=== PATIENT | female | born 1960 | race Caucasian/White ===

== ENCOUNTER → 2016-10-18 | Outpatient (CLI) | payer OTHER ==
[~2016-10-18] MED LIST: ASPI-232 PO; CLB/200 PO; CLC100X PO; LISI-787 PO; MULT-884 PO; TRAZ50TA35 PO; ZCRT/40 PO
--- NOTE | 2016-10-18 15:48 | MAMMOGRAPHY REPORT ---
BILATERAL DIGITAL SCREENING MAMMOGRAM WITH CAD: 10/18/2016 CLINICAL HISTORY: Routine screening examination. TECHNIQUE: Bilateral CC and MLO views were obtained. Additional MLO views were performed with more anterior compression and bilateral XCCL views were also obtained. Current study was also evaluated with a Computer Aided Detection (CAD) system. COMPARISON: Comparison is made to exams dated: 10/16/2015 mammogram, 10/14/2014 mammogram, 09/25/2013 mammogram, 09/13/2012 mammogram, 09/13/2011 mammogram, and 07/11/2009 mammogram - [facility] enter. BREAST COMPOSITION: The tissue of both breasts is almost entirely fatty. FINDINGS: There are scattered benign-appearing round, rim and punctate microcalcifications througho ut the breasts. No new suspicious mass, architectural distortion or cluster of microcalcifications is seen. IMPRESSION: ACR BI-RADS CATEGORY 1: NEGATIVE There is no mammographic evidence of malignancy. A 1 year screening mammogram is recommended. The p atient will receive written notification of the results. Approximately 10% of breast cancers are not detected with mammography. A negative mammographic repor t should not delay biopsy if a clinically suggestive mass is present. Amanda Al M.D. ay/:10/18/2016 14:38:17 Laboratory Tech: Alyx MONTELONGO(Latoya)(Xuan), [facility] letter sent: Normal 1/2 BI-RADS Code: ACR BI-RADS Category 1: Negative
== END | disposition home or self-care (01) ==
LOC: C.MAMM 09:00
PROVIDERS: ATTEND Internal Medicine
DX: Z12.31 Encounter for screening mammogram for malignant neoplasm of breast (principal)

== ENCOUNTER → 2016-11-26 | Outpatient (CLI) | payer OTHER ==
[2016-11-26 13:55] LABS: ESTIMATED AVERAGE GLUCOSE 120 mg/dl; HA1C FLAG Normal (Normal)
[2016-11-26 14:20] LABS: BLOOD UREA NITROGEN 15 mg/dl (7-18); BUN/CREATININE RATIO 17.5 (10-20); CALCIUM 9.1 mg/dl (8.5-10.1); CARBON DIOXIDE 26 mmol/L (21-32); CHLORIDE 105 mmol/L (98-107); CHOLESTEROL 197 mg/dl (0-200); CREATININE 0.84 mg/dl (0.60-1.20); GLUCOSE 94 mg/dl (70-99); POTASSIUM 4.2 mmol/L (3.5-5.1); SODIUM 140 mmol/L (136-145); TRIGLYCERIDES 221 mg/dl (0-150); VERY LOW DENSITY LIPOPROT CALC 44 mg/dl
[2016-11-26 14:28] LABS: ALB/GLOB RATIO 1.1 (0.9-2); ALKALINE PHOSPHATASE 76 U/L (45-117); ALT/SGPT 31 U/L (12-78); AST/SGOT 21 U/L (15-37); CHOLESTEROL/HDL RATIO 4.3; HDL CHOLESTEROL 46 mg/dl; LDL CHOLESTEROL CALCULATED 107 mg/dl
== END | disposition home or self-care (01) ==
LOC: C.LABBC 09:43
PROVIDERS: ATTEND Family Medicine
DX: E55.9 Vitamin D deficiency, unspecified (principal); E78.5 Hyperlipidemia, unspecified; R73.03 Prediabetes

== ENCOUNTER → 2016-12-08 | Outpatient (CLI) | payer OTHER ==
--- NOTE | 2016-12-08 15:34 | DIAGNOSTIC IMAGING REPORT ---
RIGHT KNEE 3 VIEWS CLINICAL HISTORY: Right knee pain right Right pain COMPARISON: None. DISCUSSION: Considerable degenerative change all major joint compartments. Moderate peripheral osteophytic reaction. No evidence for acute bony pathology. No significant joint effusion. There is no evidence for soft tissue swelling. IMPRESSION: Significant degenerative change all major joint compartments. No acute bony abnormality. Electronically signed by: Andreas Esparza M.D. 12/08/2016 3:33 PM Dictated Date/Time: 12/08/2016 3:32 PM
== END | disposition home or self-care (01) ==
LOC: C.RADBC 14:34
PROVIDERS: ATTEND Physician Assistant
DX: M25.561 Pain in right knee (principal)

== ENCOUNTER → 2017-07-06 | Outpatient (CLI) | payer OTHER ==
[2017-07-06 13:36] LABS: BASO % 0.3 %; BASO ABS # 0.01 K/uL (0-0.2); EOS % 3.2 %; EOS ABS # 0.12 K/uL (0-0.5); HEMATOCRIT 33.7 % (37-47); HEMOGLOBIN 11.1 g/dL (12.0-16.0); IG# 0.01 K/uL (0.00-0.02); LYMPH % 32.5 %; LYMPH ABS # 1.22 K/uL (1.2-3.4); MEAN CELL VOLUME 88.9 fL (80-100); MEAN CORPUSCULAR HEMOGLOBIN 29.3 pg (25-34); MEAN CORPUSCULAR HGB CONC 32.9 g/dl (32-36); MEAN PLATELET VOLUME 9.1 fL (7.4-10.4); MONO % 7.5 %; MONO ABS # 0.28 K/uL (0.11-0.59); NEUT % 56.2 %; NEUT ABS # 2.11 K/uL (1.4-6.5); PLATELET COUNT 296 K/uL (130-400); RED CELL DISTRIBUTION WIDTH CV 14.4 % (11.5-14.5); RED CELL DISTRIBUTION WIDTH SD 47.3 fL (36.4-46.3); WHITE BLOOD COUNT 3.75 K/uL (4.8-10.8)
[2017-07-06 14:03] LABS: ALBUMIN 3.5 gm/dl (3.4-5.0); ALT/SGPT 31 U/L (12-78); BLOOD UREA NITROGEN 14 mg/dl (7-18); CALCIUM 8.6 mg/dl (8.5-10.1); CARBON DIOXIDE 28 mmol/L (21-32); CHOLESTEROL 140 mg/dl (0-200); GLUCOSE 93 mg/dl (70-99); POTASSIUM 4.1 mmol/L (3.5-5.1); SODIUM 136 mmol/L (136-145)
[2017-07-06 14:15] LABS: ALKALINE PHOSPHATASE 84 U/L (45-117); AST/SGOT 19 U/L (15-37); LDL CHOLESTEROL CALCULATED 69 mg/dl; TOTAL PROTEIN 7.2 gm/dl (6.4-8.2)
[2017-07-06 14:26] LABS: HEMOGLOBIN A1C 5.4 % (4.5-5.6)
== END | disposition home or self-care (01) ==
LOC: C.LABBC 09:17
PROVIDERS: ATTEND Internal Medicine
DX: E78.5 Hyperlipidemia, unspecified (principal); I10 Essential (primary) hypertension; G47.33 Obstructive sleep apnea (adult) (pediatric); K76.0 Fatty (change of) liver, not elsewhere classified; R73.03 Prediabetes; Z68.42 Body mass index [BMI] 45.0-49.9, adult; R10.11 Right upper quadrant pain; E55.9 Vitamin D deficiency, unspecified

== ENCOUNTER → 2017-07-25 | Outpatient (CLI) | payer OTHER ==
--- NOTE | 2017-07-25 15:05 | DIAGNOSTIC IMAGING REPORT ---
RIGHT LOWER QUADRANT ABDOMINAL WALL ULTRASOUND CLINICAL HISTORY: R10.11 Right upper quadrant abdominal painR10.813 COMPARISON STUDY: No previous studies for comparison. FINDINGS: Ultrasonographic evaluation of the right lower quadrant anterior abdominal wall, reveal no abnormalities. There are no findings to indicate a hernia. IMPRESSION: No ultrasonographic evidence of a right lower quadrant abdominal wall hernia Electronically signed by: Fernando Cornell M.D. 07/25/2017 3:03 PM Dictated Date/Time: 07/25/2017 8:38 AM
== END | disposition home or self-care (01) ==
LOC: C.ULTR 07:54
PROVIDERS: ATTEND Surgery
DX: R10.11 Right upper quadrant pain (principal); R10.31 Right lower quadrant pain; R10.813 Right lower quadrant abdominal tenderness

== ENCOUNTER → 2017-08-11 | Outpatient (CLI) | payer OTHER ==
--- NOTE | 2017-08-11 14:16 | DIAGNOSTIC IMAGING REPORT ---
RIGHT HAND 3 VIEWS CLINICAL HISTORY: Hand pain. FINDINGS: 3 views of the right hand are obtained. No prior studies are available for comparison at the time of dictation. The skeletal structures are well mineralized for age. No fracture is seen. There is mild degenerative narrowing at the radiocarpal articulation. Minimal osteoarthritic change is seen at the first carpometacarpal and metacarpophalangeal joints. Osteoarthritis is seen involving the interphalangeal joints, distal greater than proximal. Erosive osteoarthritis is seen at the fifth distal interphalangeal joint. Mild soft tissue swelling is suggested in the fingers. No radiodense foreign body is identified. IMPRESSION: 1. No acute bony abnormality is identified in the right hand. 2. Arthritic change as above, noting erosive osteoarthritis of the fifth distal interphalangeal joint. Electronically signed by: Solo Mascorro M.D. 08/11/2017 2:14 PM Dictated Date/Time: 08/11/2017 2:13 PM
--- NOTE | 2017-08-11 14:16 | DIAGNOSTIC IMAGING REPORT ---
L HAND MIN 3 VIEWS ROUTINE CLINICAL HISTORY: Left hand pain COMPARISON: None. DISCUSSION: No acute fractures are visualized. There are moderate arthritic changes present the level of the distal interphalangeal joints. Degenerative changes are also present the level the first carpal metacarpal joint. There is a suspected navicular cyst. There is ulnar minus variance IMPRESSION: 1. Osteoarthritic changes most pronounced at the level of the distal interphalangeal joints and first carpal metacarpal joint 2. Suspected navicular cyst Electronically signed by: Fernando Cornell M.D. 08/11/2017 2:15 PM Dictated Date/Time: 08/11/2017 2:13 PM
[2017-08-11 16:43] LABS: BASO % 0.5 %; BASO ABS # 0.03 K/uL (0-0.2); HEMATOCRIT 32.5 % (37-47); HEMOGLOBIN 10.3 g/dL (12.0-16.0); IG# 0.03 K/uL (0.00-0.02); MEAN CELL VOLUME 86.9 fL (80-100); MEAN CORPUSCULAR HEMOGLOBIN 27.5 pg (25-34); MEAN CORPUSCULAR HGB CONC 31.7 g/dl (32-36); MEAN PLATELET VOLUME 8.9 fL (7.4-10.4); MONO % 3.3 %; MONO ABS # 0.21 K/uL (0.11-0.59); NEUT % 62.7 %; NEUT ABS # 3.99 K/uL (1.4-6.5); PLATELET COUNT 512 K/uL (130-400); RED CELL DISTRIBUTION WIDTH CV 14.7 % (11.5-14.5); RED CELL DISTRIBUTION WIDTH SD 46.8 fL (36.4-46.3); WHITE BLOOD COUNT 6.36 K/uL (4.8-10.8)
[2017-08-15 11:53] LABS: ANA SCREEN TC 249X POSITIVE (NEGATIVE)
[2017-08-15 14:38] LABS: ANA TITER 1:40 TITER (<1:40)
== END | disposition home or self-care (01) ==
LOC: C.RADBC 13:48
PROVIDERS: ATTEND Physician Assistant Medical
DX: D64.9 Anemia, unspecified (principal); M25.531 Pain in right wrist; M25.532 Pain in left wrist; M15.4 Erosive (osteo)arthritis

== ENCOUNTER → 2017-08-29 | Outpatient (CLI) | payer OTHER ==
--- NOTE | 2017-08-29 12:04 | DIAGNOSTIC IMAGING REPORT ---
SI JOINTS 3 OR MORE VIEWS CLINICAL HISTORY: Sacroiliitis. Polyarthritis. COMPARISON STUDY: CT of the abdomen and pelvis October 03, 2014. FINDINGS: The sacroiliac joints are intact without evidence for ankylosis. There is no fracture or suspicious lesion. There is osteophytosis of both sacroiliac joints with associated sclerosis. IMPRESSION: Osteophytosis of the bilateral sacroiliac joints with associated sclerosis. The findings likely reflect moderate osteoarthritis although sacroiliitis could appear similar. Electronically signed by: Garry Bernal M.D. 08/29/2017 12:02 PM Dictated Date/Time: 08/29/2017 12:01 PM
[2017-09-01 21:31] LABS: ANA SCREEN TC 249X POSITIVE (NEGATIVE); ANTI-SS-A <1.0 NEG AI (<1.0 NEG); ANTI-SS-B <1.0 NEG AI (<1.0 NEG); COMPLEMENT C3 TC 44859W 153 MG/DL (90-180); COMPLEMENT C4 TC 44982E 32 MG/DL (16-47); PARVOVIRUS IgM INDEX 0.2 (<0.9)
== END | disposition home or self-care (01) ==
LOC: C.RAD1850 11:24
PROVIDERS: ATTEND Internal Medicine Rheumatology
DX: D47.3 Essential (hemorrhagic) thrombocythemia (principal); J01.90 Acute sinusitis, unspecified; M06.4 Inflammatory polyarthropathy; M46.1 Sacroiliitis, not elsewhere classified; R70.0 Elevated erythrocyte sedimentation rate

== ENCOUNTER → 2017-09-01 | Outpatient (CLI) | payer OTHER ==
--- NOTE | 2017-09-01 17:34 | DIAGNOSTIC IMAGING REPORT ---
BONE SCAN WHOLE BODY CLINICAL HISTORY: 56 years-old Female presenting with J01.90 Acute sinusitis, diagnosed with sacroiliitis. TECHNIQUE: Planar anterior and posterior imaging of the whole body and the hands was performed 3 hours following the intravenous administration of 26.3 mCi Tc-99m MDP. COMPARISON: Plain radiographs of the hands from 08/11/2017. FINDINGS: Focal radiotracer uptake at the first carpometacarpal articulation of the left hand and distal interphalangeal joint of the second finger. No focal radiotracer uptake in the right hand. Images of the whole body demonstrate focal radiotracer uptake in the lateral femoral condyle of the right femur and medial tibial plateau of the right tibia. Focal radiotracer uptake in the lateral midfoot-forefoot junction of the right foot. Focal radiotracer uptake at the lateral femoral condyle of the left femur. Less pronounced focal radiotracer uptake in the lateral left foot at the midfoot-forefoot junction. No focal radiotracer activity in the sacroiliac joints. IMPRESSION: 1. Multifocal radiotracer uptake, which is characteristic of osteoarthritis affecting the left first CMC, left second DIP, bilateral knees, and lateral midfoot-forefoot junctions in the right greater than left feet. Electronically signed by: Joesph Leahy M.D. 09/01/2017 5:32 PM Dictated Date/Time: 09/01/2017 5:28 PM
== END | disposition home or self-care (01) ==
LOC: C.NUCL 13:08
PROVIDERS: ATTEND Internal Medicine Rheumatology
DX: D47.3 Essential (hemorrhagic) thrombocythemia (principal); J01.90 Acute sinusitis, unspecified; M06.4 Inflammatory polyarthropathy; M46.1 Sacroiliitis, not elsewhere classified; R70.0 Elevated erythrocyte sedimentation rate

== ENCOUNTER → 2017-10-24 | Outpatient (CLI) | payer OTHER ==
--- NOTE | 2017-10-25 13:17 | MAMMOGRAPHY REPORT ---
BILATERAL DIGITAL SCREENING MAMMOGRAM TOMOSYNTHESIS WITH CAD: 10/24/2017 CLINICAL HISTORY: Routine screening. TECHNIQUE: Breast tomosynthesis in addition to standard 2D mammography was performed. Current study was also evaluated with a Computer Aided Detection (CAD) system. COMPARISON: Comparison is made to exams dated: 10/18/2016 mammogram, 10/16/2015 mammogram, 10/14/2014 m ammogram, 09/25/2013 mammogram, 09/13/2012 mammogram, and 09/13/2011 mammogram - [facility]ter. BREAST COMPOSITION: The tissue of both breasts is almost entirely fatty. FINDINGS: There are scattered stable punctate microcalcifications bilaterally. No suspicious mass, a rchitectural distortion or cluster of microcalcifications is seen. IMPRESSION: ACR BI-RADS CATEGORY 1: NEGATIVE There is no mammographic evidence of malignancy. A 1 year screening mammogram is recommended. The pa tient will receive written notification of the results. Approximately 10% of breast cancers are not detected with mammography. A negative mammographic report should not delay biopsy if a clinically suggestive mass is present. Amanda Al M.D. ay/:10/24/2017 15:58:45 Mechanical Maintenance Technician: Rachael MONTELONGO(Latoya)(M), [facility] letter sent: Normal 1/2 BI-RADS Code: ACR BI-RADS Category 1: Negative
== END | disposition home or self-care (01) ==
LOC: C.MAMM 09:04
PROVIDERS: ATTEND Internal Medicine
DX: Z12.31 Encounter for screening mammogram for malignant neoplasm of breast (principal)

== ENCOUNTER 2020-08-22 10:04 | Observation (INO) ==
[2020-07-28 12:47] LABS: Basophils # (auto) 0.03 K/uL (0-0.2); Basophils % (auto) 0.6 %; Eosinophils # (auto) 0.31 K/uL (0-0.5); Eosinophils % (auto) 5.9 %; Hematocrit (blood only) 37.2 % (37-47); Hemoglobin 12.4 g/dL (12.0-16.0); Immature Granulocytes # (auto) 0.01 K/uL (0.00-0.02); Immature Granulocytes % (auto) 0.2 %; Lymphocytes % (auto) 34.3 %; Mean Corpuscular Hemoglobin 29.2 pg (25-34); Mean Corpuscular Hgb Conc 33.3 g/dL (32-36); Mean Corpuscular Volume 87.7 fL (80-100); Mean Platelet Volume 10.4 fL (7.4-10.4); Monocytes # (auto) 0.17 K/uL (0.11-0.59); Monocytes % (auto) 3.2 %; Neutrophils # (auto) 2.93 K/uL (1.4-6.5); Neutrophils % (auto) 55.8 %; Platelet Count 292 K/uL (130-400); RDW Coefficient of Variation 13.6 % (11.5-14.5); RDW Standard Deviation 43.8 fL (36.4-46.3); Red Blood Count 4.24 M/uL (4.2-5.4); White Blood Count 5.25 K/uL (4.8-10.8)
[2020-07-28 13:29] LABS: Alanine Aminotransferase 28 U/L (12-78); Albumin Level 3.7 gm/dl (3.4-5.0); Alkaline Phosphatase 96 U/L (45-117); Aspartate Aminotransferase 15 U/L (15-37); BUN Creatinine Ratio 16.1 (10-20); Blood Urea Nitrogen 12 mg/dl (7-18); Carbon Dioxide 29 mmol/L (21-32); Chloride 107 mmol/L (98-107); Est GFR (African American) 102.6; Est GFR (Non-African American) 88.5; Glucose 115 mg/dl (70-99); Potassium 3.9 mmol/L (3.5-5.1); Sodium 141 mmol/L (136-145)
[2020-07-28 13:30] LABS: Albumin Globulin Ratio 1.1 (0.9-2); Bilirubin,Total 0.5 mg/dl (0.2-1); Globulin 3.5 gm/dl (2.5-4.0); Total Protein 7.2 gm/dl (6.4-8.2)
--- NOTE | 2020-07-31 21:32 | Anesthesiology Consultation ---
Date of Service July 31, 2020 Assessment & Plan (1) Encounter for pre-operative examination: Case originally scheduled for 06/18/20. Patient seen in PAT 05/28/20. R/S due to COVID-19 hospital surge capacity protocol. COVID Status: As of 07/31 nurse assessment, patient denies travel to endemic area, known exposure/sick contacts, or symptoms of COVID19. Preoperative COVID19 testing to be completed on 08/18. PATIENT GOES BY [facility]. Chart Review Chart Review: Acceptable Risk for Surgery and Patient seen in Pre Admission Testing Teaching & Discussion Instructed NPO after midnight before surgery, except medications with 15 cc of water. Medication instructions provided according to the [facility] guidelines. History Surgery Operation Date: 08/22/20 09:05 Proposed Procedures p Right Total Knee Arthroplasty - Praveen Clifford MD Height/Weight Height: 5 ft 3 in Weight: 124.738 kg Allergies Allergy/AdvReac Type Severity Reaction Status Date / Time codeine Allergy Mild GI SYMPTOMS Verified 07/31/20 11:13 Medications Home Medications Medication Instructions Recorded Confirmed Last Taken cholecalciferol (vitamin D3) 25 1,000 units PO QAM cap 03/20/19 07/31/20 Unknown mcg (1,000 unit) capsule docusate sodium 100 mg capsule 100 mg PO QAM cap 03/20/19 07/31/20 Unknown multivitamin 1 tab PO QAM 03/20/19 07/31/20 Unknown omega-3 fatty acids 1,000 mg 1,000 mg PO QAM 03/20/19 07/31/20 Unknown capsule simvastatin 40 mg tablet 40 mg PO QAM #90 tab 07/11/19 07/31/20 Unknown trazodone 50 mg tablet 75 mg PO HS PRN #135 tab 10/01/19 07/31/20 Unknown loratadine-pseudoephedrine ER 10 1 tab PO QAM #90 tab 04/25/20 07/31/20 Unknown mg-240 mg tablet,extended [id number] celecoxib [Celebrex] 200 mg PO QAM 05/05/20 07/31/20 Unknown lisinopril-hydrochlorothiazide 1 tab PO QAM 05/05/20 07/31/20 Unknown venlafaxine 75 mg PO QAM 05/05/20 07/31/20 Unknown metformin 500 mg tablet 1,000 mg PO BID #360 tab 07/22/20 07/31/20 Unknown vitamin B complex [B Complex] 1 tab PO PM 07/31/20 07/31/20 Unknown Past Medical History Medical History (Updated 07/31/20 @ 11:30 by Kat Alex RN) Anemia Anxiety Constipation DJD (degenerative joint disease) Fatty liver disease, nonalcoholic GERD (gastroesophageal reflux disease) Hyperlipidemia Hypertension Insomnia Morbidly obese Osteoarthritis Positive KRISTA (antinuclear antibody) pt unaware Prediabetes Sleep apnea MILD- NO CPAP, COULD NOT TOLERATE Exercise / Class Metabolic Activity II 4-5 Yardwork/Stairs/Walk up hill (Denies CP or SOB with 1 FOS) Past Family History Family History Brother Diabetes Dyslipidemia Hypertension Mother Heart disease bypass surgery at 56 Myocardial infarction Father , Age 73 Heart disease Diabetes Myocardial infarction Uncle Alzheimer disease Denies family history of Ovarian cancer Prostate cancer Breast cancer Lung cancer Colorectal cancer Past Surgical History Surgical History History of colonoscopy History of endoscopic sinus surgery History of nasal septoplasty Lipoma of abdominal wall EXCISION S/P carpal tunnel release right [place] teeth extracted 2 Past Anesthesia History No Hx of Anesthesia Complications and No Family Hx of Anesthesia Complications History of PONV No Hx of PONV and Hx of Motion Sickness Social History Smoking Status: Never smoker Do You Dip or Chew Tobacco: No Hx Alcohol Use: No Hx Substance Use: No substance use type: does not use Review of Systems Pt denies any recent chest pain, shortness of breath, palpitations, cough, fever, URI, or uncontrolled acid reflux (controlled). Physical Exam Vital Signs BP: 138/88 P: 82bpm SPO2: 95% RA T: 98.3 F R: 16 Constitutional + morbidly obese ENMT Mouth: + chipped teeth (upper front tooth) and + macroglossia; no dental restorations and no loose teeth Thyromental Distance: > or= 3.5 Finger Breadths Mallampati Class: III Neck + short neck and + thick neck; neck extension not limited Respiratory normal respiratory effort, lungs clear to auscultation Cardiovascular RRR, no murmur, no edema Testing Laboratory Results 07/28/20 11:30 07/28/20 11:30 PT 10.0 Seconds (9.0-12.0) 07/28/20 11:30 INR 1.0 (0.9-1.1) 07/28/20 11:30 Blood Type B Positive 07/28/20 11:31 Antibody Screen NEGATIVE 07/28/20 11:31 Other Testing Electrocardiogram Date: 05/28/20 Findings: + NSR @ (67bpm with sinus arrhythmia) No significant change from 04/17/2019 EKG. Chest X-Ray Date: 05/28/20 Findings: + NAD
--- NOTE | 2020-08-16 11:57 | History and Physical Report ---
DATE OF ADMISSION: 08/22/2020 CHIEF COMPLAINT: Bilateral knee pain and discomfort. HISTORY OF PRESENT ILLNESS: The patient is a 59-year-old female who presents for surgical treatment of her knees. She has a long history of bilateral knee pain and discomfort which varies from one side to the other being the most severe. We have been treating her with some injections which provided very temporary relief only. Her knees continue to bother her and limit her activity level. She describes it has gotten worse over time. Pain increases as the day goes on. It is a global pain. The more she walks, the more they hurt. She was hoping to have both knees replaced at the same time. We had scheduled her for right knee replacement, but the left one is bothering her more now and she would like to change to the left knee. She has nighttime discomfort. Difficulty going up and down stairs. PAST MEDICAL HISTORY: 1. Hypertension. 2. Elevated cholesterol. 3. Sleep apnea with CPAP machine. 4. Diabetes. 5. Low back pain/sciatica. 6. Gastroesophageal reflux disease. 7. Moderate obesity with a BMI of 49. PAST SURGICAL HISTORY: Include: 1. Carpal tunnel release. 2. Rhinoplasty. ALLERGIES: CODEINE. CURRENT MEDICATIONS: 1. Lisinopril. 2. Claritin. 3. Zocor. 4. Multivitamin. 5. Fish oil. 6. Celebrex. 7. Metformin. 8. Trazodone. 9. Venlafaxine. 10. Colace. SOCIAL HISTORY: Significant for a 59-year-old female. She is . Does not smoke. No significant alcohol intake. FAMILY HISTORY: Noncontributory. REVIEW OF SYSTEMS: Negative for diabetes, neurologic problem, vascular problems or bleeding disorders. No chest pain or shortness of breath. No history of DVT or PE. No known bleeding problems. PHYSICAL EXAMINATION GENERAL: Shows a pleasant, middle-aged female. Looks to be in reasonably good health. HEENT: Benign. NECK: Supple, no lymphadenopathy. LUNGS: Clear to auscultation. HEART: Has a regular rate and rhythm. ABDOMEN: Soft, nontender, nondistended. EXTREMITIES: Grossly neurovascularly intact except as follows. Examination of both knees reveals the patient walks with a little bit of a waddling gait. Examination of the left knee reveals moderate soft tissue envelope. She has got a small to moderate size knee effusion. She is tender diffusely to palpate around her knee. Range of motion is near full extension to 125 degrees of flexion. No instability. No pain with hip motion. Examination of the right knee reveals a slight varus alignment. She has got bony hypertrophy and tenderness medially and laterally. Small knee effusion. Range of motion is 0-120. No instability. No pain with hip motion. X-RAYS: X-rays of both knees were reviewed. It shows advanced bilateral knee DJD. She has [id number] disease in all 3 compartments in both knees. Both knees are pretty equal in severity. ASSESSMENT: A 59-year-old white female with advanced bilateral knee degenerative joint disease. She has failed conservative treatment. We had initially scheduled for the right knee, but the left knee is bothering her more currently and she would like to proceed with left knee replacement. PLAN: We are going to proceed with a left knee replacement. The risks and benefits of a left knee replacement were explained to the patient including but not limited to DVT, PE, , infection, neurological injury, vascular injury, bleeding problem, pain, limited range of motion, stiffness, failure to relieve symptoms, incomplete relief of symptoms, need for further surgery in future, fracture, leg length inequality, nerve palsy, etc. The patient understands and desires to proceed. Informed consent was obtained. We did talk about holding her lisinopril and metformin the morning of surgery. She will bring her CPAP machine to the hospital. She is planning to be discharged to home using [facility] home health program.
[~2020-08-22 10:04] MED LIST changes: +ACETAMINOPHEN 500 MG TAB PO SCH; -ASPI-232 PO; +BUPIVACAINE 0.5 % 5 MG/1 ML PF 10ML VIAL ONE; +BUPIVACAINE LIPOSOME/PF 266 MG, BUPIVACAINE/EPINEPHRINE 50 ML, SODIUM CHLORIDE 0.9% 30 ... INFIL SCH; -CLB/200 PO; -CLC100X PO; +FAMOTIDINE 20 MG TAB PO SCH; +GABAPENTIN 900 MG DOSE PO SCH; -LISI-787 PO; +LR 500ML BOLUS, THEN 15ML/HR IV SCH; +LR 60ML/HR IV SCH; -MULT-884 PO; +ROPIVACAINE 0.5% 5 MG/ML 30 ML VIAL ONE; +Scopolamine 1 MG TDSY TD SCH; +TRANEXAMIC ACID 1,000 MG **IV Intra-op IV SCH; -TRAZ50TA35 PO; -ZCRT/40 PO
[2020-08-22] MEDS ORDERED: MIDAZOLAM HCL 1 MG/ML 2ML VIAL ONE (10:25)
[2020-08-22] MEDS ORDERED: fentaNYL citrate 100 MCG/2 ML VIAL ONE (10:26)
--- NOTE | 2020-08-22 10:47 | History & Physical Bridge Note ---
Date of Service August 22, 2020 History & Physical Bridge Note I have examined the patient, reviewed the History & Physical and in the interval since the performance of the History & Physical I have noted the following changes of clinical significance: no changes noted
[2020-08-22] MEDS ORDERED: GABAPENTIN 300 MG CAP ONE (10:48)
[2020-08-22] MEDS ORDERED: FAMOTIDINE 20 MG TAB ONE (10:48)
[2020-08-22] MEDS ORDERED: ACETAMINOPHEN 500 MG TAB ONE (10:48)
[2020-08-22] MEDS ORDERED: SCOPOLAMINE 1 MG TDSY TD ONE (10:49)
[2020-08-22] MEDS ORDERED: ceFAZolin 2,000 MG/15 ML IV PUSH IV ONE (10:49)
[2020-08-22] MEDS ORDERED: ATROPINE SULFATE 0.1 MG/ML 10ML SYR IV PRN (12:12)
[2020-08-22] MEDS ORDERED: ePHEDrine sulfate 50 MG/ML AMP IV PRN (12:12)
[2020-08-22] MEDS ORDERED: ONDANSETRON INJ 2 MG/ML 2 ML VIAL IV PRN ×2 (12:12→17:04)
[2020-08-22] MEDS ORDERED: HYDROmorphone INJ 2 MG/ML SYR/VIAL IV PRN (12:12)
[2020-08-22] MEDS ORDERED: fentaNYL citrate 100 MCG/2 ML VIAL IV PRN (12:12)
[2020-08-22] MEDS ORDERED: LIDOCAINE HCL 2% 2 ML VIAL/AMP(20MG/ML) INFIL ONE (12:28)
[2020-08-22] MEDS ORDERED: PROPOFOL IV EMULSION 10 MG/ML 20 ML VIAL IV ONE (12:28)
[2020-08-22] MEDS ORDERED: ONDANSETRON INJ 2 MG/ML 2 ML VIAL ONE (12:30)
[2020-08-22] MEDS ORDERED: BUPIVACAINE LIPOSOME 1.3% 266 MG/20 ML VIAL ONE (13:14)
[2020-08-22] MEDS ORDERED: EPINEPHrine INJ 1 MG/ML AMP ONE (13:14)
[2020-08-22] MEDS ORDERED: BACITRACIN INJ 50,000 UNIT VIAL ONE (13:14)
[2020-08-22] MEDS ORDERED: SODIUM CHLORIDE 0.9% PF 50 ML VIAL ONE (13:14)
[2020-08-22] MEDS ORDERED: BUPIVACAINE 0.25% 30 ML VIAL ONE (13:15)
[2020-08-22] MEDS ORDERED: ePHEDrine sulfate 50 MG/ML AMP ONE (14:05)
[2020-08-22] MEDS ORDERED: PHENYLEPHRINE HCL 10 MG/ML VIAL ONE (14:05)
--- NOTE | 2020-08-22 15:59 | XRay Report ---
LEFT KNEE 2 VIEWS History: Left total knee arthroplasty. Degenerative arthritis. Postop. FINDINGS: The patient is status post a left total knee arthroplasty. The hardware is intact. No fract ure or dislocation. Skin marisol are in place. IMPRESSION: Left total knee arthroplasty. No evidence for hardware complication. ACT 112: Negative or not required by law. Electronically signed by: Mikhail Gates M.D. 08/22/2020 3:58 PM
--- NOTE | 2020-08-22 16:18 | Anesthesiology Progress Note ---
Date of Service August 22, 2020 Anesthesia Post Procedure Vital Signs Vital Signs: Temp Pulse Pulse Resp BP BP Pulse Ox 08/22/20 16:10 84 18 129/61 97 08/22/20 16:00 36.8 C 85 20 130/71 97 08/22/20 15:50 87 16 129/70 97 08/22/20 15:40 84 18 128/70 97 08/22/20 15:39 36.3 C L 88 20 137/69 98 08/22/20 11:07 36.6 C 90 18 161/95 H 95 Transfer of Care Handoff Completed per policy Notes Mental Status: alert / awake / arousable and participated in evaluation Nausea / Vomiting: adequately controlled Pain: adequately controlled Airway Patency, RR, SpO2: stable & adequate BP & HR: stable & adequate Hydration State: stable & adequate Neuraxial Anesthesia: was administered and sensory block is resolving Anesthetic Complications: no major complications apparent and Pt Satisfied with anesthetic care
[2020-08-22] MEDS ORDERED: MAGNESIUM HYDROXIDE SUSP 30 ML UDC PO PRN (17:04)
[2020-08-22] MEDS ORDERED: CARBOHYDRATES FOR HYPOGLYCEMIA PO PRN (17:04)
[2020-08-22] MEDS ORDERED: GLUCOSE 10 TABS/TUBE PO PRN (17:04)
[2020-08-22] MEDS ORDERED: traZODone HCL 50 MG TAB PO PRN (17:04)
[2020-08-22] MEDS ORDERED: GLUCAGON FOR INJ 1 MG VIAL SQ PRN (17:04)
[2020-08-22] MEDS ORDERED: ALUMINUM/MAGNESIUM SUSP 30 ML UDC PO PRN (17:04)
[2020-08-22] MEDS ORDERED: DEXTROSE 50% 50 ML SYRINGE IV PRN (17:04)
[2020-08-22] MEDS ORDERED: diphenhydrAMINE Capsule 25 MG CAP PO PRN (17:04)
[2020-08-22] MEDS ORDERED: METOCLOPRAMIDE HCL INJ 5 MG/ML 2 ML VIAL IV PRN (17:04)
[2020-08-22] MEDS ORDERED: NALOXONE HCL 0.4 MG/1 ML VIAL/CARP IV PRN (17:04)
[2020-08-22] MEDS ORDERED: bisacodyL 10 MG SUPP PR PRN (17:04)
[2020-08-22] MEDS ORDERED: GLUCOSE 40% GEL 15 GM TUBE PO PRN (17:04)
[2020-08-22] MEDS ORDERED: HYDROmorphone INJ 0.5 MG/0.5 ML SYR IV PRN (17:04)
[2020-08-22] MEDS ORDERED: PHARMACY GLYCEMIC MGMT CONSULT PRN (17:30)
--- NOTE | 2020-08-22 17:37 | Operative Report ---
Post Operative Report Pre & Post Diagnosis Operation Date: 08/22/20 12:30 Pre-Op Diagnosis: Left Knee Degenerative Joint Disease, Knee Pain Post-Op Diagnosis: Left Knee Degenerative Joint Disease, Knee Pain I identified the patient and participated in the time-out.: Yes Procedure Operation Date: 08/22/20 12:30 Actual Procedures p Left Total Knee Arthroplasty(Left) - Praveen Clifford MD Surgeon Praveen Clifford MD Metal Extrusion Supervisor CAMPBELL Gustafson Estimated Blood Loss 50 Findings Consistent with Post-Op Diagnosis Operative findings were advanced left knee tricompartment DJD. She had grade 4 [id number] disease in all 3 compartments. Large soft tissue envelope. Osteophytes in all 3 compartments. Moderate-sized joint effusion. Fluids 1400 cc. Specimens Left knee sent for pathology. Anesthesia Type Spinal MAC Complications none Disposition Accompanied Patient To Recovery: No Disposition: Recovery Room Indications Patient is a 59-year-old female with a long history of bilateral knee pain DJD. She is morbidly obese. She been through extensive conservative treatment which became less successful over time. She is hoping to do both knees at the same time but I did feel it was safe based on her BMI and underlying medical comorbidities. She elected proceed with left total knee arthroplasty. Description of Procedure Operative implants consist of: 1. Biomet Vanguard size 62.5 left posterior stabilized femoral component. 2. Biomet size 67 tibial tray. 3. 12 mm posterior stabilized polyethylene insert. 4. 28 x 8 all polypatella. The patient was taken the operating identified and placed on the operating table supine position but all contractors were properly padded. IV antibiotics 5 by anesthesia team. A spinal anesthetic and abductor canal block had provided holding area. Romero catheter was placed in sterile fashion. A left thigh turn was then placed in the left lower extremities and prepped and draped in usual sterile fashion. The left leg was elevated exsanguinated with use of an Esmarch and turns placed at 300 mmHg. An anterior approach left knee was then performed through longitudinal incision centered over the patella. Sharp dissection was got through subcutaneous tissue down to level of the extensor mechanism. A medial parapatellar arthrotomy incision was made. Some subperiosteal dissection was carried out medially. The fat pad was resected from each patella tendon. The lateral patellofemoral ligament was released. But patella was subluxated laterally and the knee was flexed. The osteophytes were taken off distal femur. The ACL and PCL were then released from distal femur and the tibia subluxated anteriorly. The external tibial alignment jig was then placed in the interface the tibia and adjusted 14 mm medially. Proximal tibial cut was made remove about 2 mm of bone from the most deficient aspect medial tibial plateau. The tibia sized to a size 67. I tried to maximize her coverage due to our morbid obesity. A size 67 tray was selected. Attention then drawn to the femur. The distal femur was entered with a sharp drill. Intramedullary canal was suction. A left 5 degree valgus cutting guide was placed. Distal femoral cutting block was pinned in place but distal femoral cut was made to take an additional 3 mm bone off distal femur. The femur then sized to a size 62.5. We did downsize at least a half a size. The AP cutting block was pinned parallel to the epicondylar axis which was 5 degrees of external rotation. The anterior cut, anterior chamfer, posterior cut, posterior chamfer cuts were made. The box cutting guide was placed in just slight lateral box cut was made to the knee was flexed up and the remnants of the medial lateral menisci were excised. The osteophytes were taken off the posterior aspect the femur. A trial femoral component was placed for the tibial tray was then pinned in maximum external rotation and the drill and stem punch were used to create defect in proximal tibia for the tibial tray. Knee was then trialed and the 12 mm insert fit most appropriately. Attention drawn the patella. The patella was cleaned of all soft tissue. Patella was quite worn particular the lateral facet and this thickness was about 18. I cut it down to 12 mm. Was sized to a size 28 patella. The lug holes were drilled for the 28 patella. The lateral osteophyte is moved. Patella button was placed. Knee was taken taken through range of motion patella tracked nicely with no thumbs test. Attention was then drawn to placing the permanent implants. All trial implants were removed. Bone plug was placed in the distal femur limit limit blood loss. A double batch Palacos G cement was mixed. A Biomet Vanguard size 62.5 left posterior stabilized femoral component, size 67 tibial tray, 12 mm posterior stabilized polyethylene insert, and a 28 x 8 all polypatella then cemented in place. The knee was brought out into full extension until cement hardened. Final cement check was then performed. Pericapsular tissues were injected with total 100 cc of combination of 20 of Exparel, 30 cc normal saline, 50 cc of quarter percent Marcaine with epinephrine. Patient did receive 1 g tranexamic acid. The tourniquet was let down for turn time of 60 minutes. Hemostasis assured use electrocautery. The wounds once again irrigated. Extensor mechanism closed with combination 1 PDS suture #1 Vicryl suture in [id number] fashion. Extensor mechanism checked 5 be intact the sub cutaneous tissue then closed with 2 Dexon suture in a buried interrupted fashion skin was closed skin marisol. Leg was then cleaned dried and a sterile dressing was Xeroform, 4 x 4's, sterile cast padding, Jesus Manuel bandage were applied. Patient then transferred to the recovery room in stable condition. Patient tolerated the procedure well and there were no complications. Osbaldo Gustafson, my physician appeals assistant, was present for the entire procedure. His assistance was essential and required for appropriate patient positioning, prepping and draping, surgical exposure, performing the technical details of the operation, placement the implants, closure of the wound, and placement of the sterile bandage. I attest to the content of the Intraoperative Record and any orders documented therein. Any exceptions are noted below.
[2020-08-22] MEDS: Scopolamine CHECK PATCH PLACEMENT SCH ×2 (17:47→23:55)
[2020-08-22] MEDS: SODIUM CHLORIDE 0.9% 1000ML 1,000 ML IV SCH ×2 (17:48→23:55)
[2020-08-22] MEDS: KETOROLAC 30 MG/ML VIAL IV SCH ×2 (17:50→23:55)
[2020-08-22] MEDS: FERROUS GLUCONATE 324 MG TAB PO SCH (18:19)
[2020-08-22] MEDS: ASCORBIC ACID 500 MG TAB PO SCH (18:20)
[2020-08-22] MEDS: INSULIN ASPART 100 UNITS/ML 3 ML PEN SC SCH ×2 (18:27→20:45)
--- NOTE | 2020-08-22 19:40 | Pharmacy Report ---
Pharmacy Glycemic Short Note 2 - Date of Service August 22, 2020 - Glycemic Short BSG Results (Last 24 hours): 08/22/20 08/22/20 10:53 18:24 POC Glucose 107 H 116 H OUTPATIENT ANTIDIABETIC REGIMEN: * metformin * A1c 5.5 - 10/19/2019 * A1c pending ASSESSMENT: * 59 year old now s/p L total knee arthroplasty - managed on metformin at home for diabetes * No steroids received preop per review of chart, plan to start novolog with stress of 2 dosing. Post op BSG 116 mg/dL - will hold CR for now, may add if we see BSGs trending upward PLAN FOR INPATIENT GLYCEMIC CONTROL: * Hold outpatient oral diabetes medications * Basal insulin * Lantus - hold * Bolus insulin * NovoLog per scale ACHS or Q6hrs while NPO * Goal Range: Low 110 mg/dL - High 140 mg/dL * Correction Factor: 30 mg/dL/unit * Nutritional / Prandial insulin per carb ratio of 1 unit per -- grams CHO consumed PLAN FOR DISCHARGE: * A1c pending
[2020-08-22] MEDS: ASPIRIN 81 MG ECTAB PO SCH (20:52)
[2020-08-22] MEDS: TAPENTADOL HCL ER 50 MG TABCR PO SCH (20:52)
[2020-08-22] MEDS: DOCUSATE SODIUM 100 MG CAP PO SCH (20:53)
[2020-08-22] MEDS ORDERED: SENNA 8.6 MG TAB PO SCH (21:00)
[2020-08-22] MEDS ORDERED: VITAMIN B COMPLEX TAB PO SCH (21:00)
[2020-08-22] MEDS ORDERED: TRANEXAMIC ACID / 0.7% NACL 1,000 MG/100 ML BAG IV SCH (22:00)
[2020-08-22] MEDS: ACETAMINOPHEN 500 MG TAB PO SCH (22:02)
[2020-08-22] MEDS: ceFAZolin 2000MG 2,000 MG/15 ML SYR IV SCH (22:08)
[2020-08-23] MEDS: ACETAMINOPHEN 500 MG TAB PO SCH ×2 (05:23→13:09)
[2020-08-23] MEDS: KETOROLAC 30 MG/ML VIAL IV SCH ×2 (05:23→11:20)
[2020-08-23] MEDS: ceFAZolin 2000MG 2,000 MG/15 ML SYR IV SCH (05:24)
[2020-08-23 06:12] LABS: Hematocrit (blood only) 31.7 % (37-47); Hemoglobin 10.4 g/dL (12.0-16.0); Mean Corpuscular Hemoglobin 28.7 pg (25-34); Mean Corpuscular Hgb Conc 32.8 g/dL (32-36); Mean Corpuscular Volume 87.6 fL (80-100); Mean Platelet Volume 9.5 fL (7.4-10.4); Platelet Count 238 K/uL (130-400); RDW Coefficient of Variation 14.2 % (11.5-14.5); RDW Standard Deviation 46.1 fL (36.4-46.3); Red Blood Count 3.62 M/uL (4.2-5.4); White Blood Count 5.97 K/uL (4.8-10.8)
[2020-08-23 06:44] LABS: BUN Creatinine Ratio 17.1 (10-20); Calcium 8.6 mg/dl (8.5-10.1); Creatinine Clr Calc Pharmacy 111.9 ml/min; Est GFR (African American) 107.7
[2020-08-23 07:20] LABS: Estimated Average Glucose 114 mg/dl; Hemoglobin A1C 5.6 % (4.5-5.6)
[2020-08-23] MEDS: HYDROmorphone HCL 2 MG TAB PO PRN ×2 (07:56→13:09)
[2020-08-23] MEDS: Scopolamine CHECK PATCH PLACEMENT SCH (07:56)
[2020-08-23] MEDS: TAPENTADOL HCL ER 50 MG TABCR PO SCH (08:00)
[2020-08-23] MEDS: FERROUS GLUCONATE 324 MG TAB PO SCH (08:00)
[2020-08-23] MEDS: ASCORBIC ACID 500 MG TAB PO SCH (08:00)
[2020-08-23] MEDS: DOCUSATE SODIUM 100 MG CAP PO SCH (08:00)
[2020-08-23] MEDS: ASPIRIN 81 MG ECTAB PO SCH (08:00)
[2020-08-23] MEDS: INSULIN ASPART 100 UNITS/ML 3 ML PEN SC SCH ×2 (08:07→13:15)
[2020-08-23] MEDS ORDERED: OMEGA-3 (PURIFIED FISH OIL) 1 GM CAP PO SCH (09:00)
[2020-08-23] MEDS ORDERED: MULTIVITAMIN TAB PO SCH ×2 (09:00)
[2020-08-23] MEDS ORDERED: DOCUSATE SODIUM 100 MG CAP PO SCH (09:00)
[2020-08-23] MEDS ORDERED: CHOLECALCIFEROL 1,000 UNITS 25 MCG TAB PO SCH (09:00)
[2020-08-23] MEDS ORDERED: LISINOPRIL/HCTZ 20/12.5MG 1 TAB TAB PO SCH (09:00)
[2020-08-23] MEDS ORDERED: VENLAFAXINE HCL XR 75 MG CAPXR PO SCH (09:00)
[2020-08-23] MEDS ORDERED: LORATADINE/PSEUDOEPHEDRINE 1 TABCR PO SCH (09:00)
[2020-08-23] MEDS ORDERED: SIMVASTATIN 40 MG TAB PO SCH (09:00)
--- NOTE | 2020-08-23 10:23 | Progress Notes ---
DATE: 08/23/2020 SUBJECTIVE: A 59-year-old white female postop day 1 from a left knee replacement. She is doing reasonably well. A moderate amount of pain, but seems to be doing well with pain medicines. No chest pain or shortness of breath. Not feeling dizzy or lightheaded. OBJECTIVE: VITAL SIGNS: Temperature 36.4. Vital signs stable. GENERAL: Shows a pleasant, middle-aged female. She is sitting up in bed, looks quite comfortable. LUNGS: Clear to auscultation. HEART: Has a regular rate and rhythm. ABDOMEN: Soft, nontender, nondistended. EXTREMITIES: Grossly neurovascularly intact except as follows. Examination of the left leg reveals the leg to be well aligned. Dressing is clean, dry and intact. She can dorsiflex and plantarflex her foot appropriately. She is neurologically intact. LABORATORY DATA: Hemoglobin 10.4. Hematocrit 31.7. Electrolytes are normal. ASSESSMENT: A 59-year-old white female postop day 1 from a left knee replacement, doing reasonably well. Pain is controlled. She is neurologically intact. PLAN: 1. DVT prophylaxis including thigh-high TEDs, SCDs, and aspirin twice a day. 2. PT/OT. Weightbear as tolerated. Left total knee protocol. 3. Pain control, doing pretty well with current pain regimen. 4. Disposition: She is planning to be discharged home with some home health, hopefully later today if does okay in therapy.
--- NOTE | 2020-08-28 06:48 | Discharge Summary ---
Date of Service August 28, 2020 Discharge Data Procedures Performed Operation Date: 08/22/20 12:30 Actual Procedures p Left Total Knee Arthroplasty(Left) - Praveen Clifford MD Hospital Course (1) Status post total left knee replacement: This patient is a 59 year old female admitted on 08/22/20 and underwent total knee arthroplasty. She tolerated the procedure well and there were no complications. Transferred to the PACU post op and later to the orthopedic floor for further care. She was given ancef for antibiotic prophylaxis. She was also given WINIFRED stockings, SCDs, and aspirin for DVT prophylaxis. Hemoglobin, hematocrit, and vital signs were monitored during her hospital stay and remained stable. Did not require any blood transfusions. There were no complications du ring her hospital stay. By post op day #1 the patient was tolerating a diabetic diet, pain was reasonably controlled with oral pain medicine, and she was participating in physical therapy. On post op day #1 the patient was discharged home and set up with home health care. She was given printed discharge instructions including prescriptions for extra strength tylenol, aspirin, and dilaudid. Continue physical therapy, weight bearing as tolerated. Continue WINIFRED stockings. Follow up approximately 2 weeks post op or sooner if there are problems or concerns. Coding Level of Care Code None Diagnoses Status post total left knee replacement Z96.652
== END 2020-08-23 14:49 | disposition home health service (06) ==
LOC: 3E 10:04 → ASU 10:04

== ENCOUNTER 2021-08-07 07:53 | Observation (INO) ==
--- NOTE | 2021-08-01 21:07 | History and Physical Report ---
DATE OF ADMISSION: 08/07/2021 CHIEF COMPLAINT: Persistent right knee pain and discomfort. HISTORY OF PRESENT ILLNESS: The patient is a 60-year-old female now about a year out from left knee replacement. She has had a long history of knee problems and done well from the left knee. Really n ot having any pain. She continues to be bothered by right knee pain and discomfort. She has been tr eated with injections, which provided temporary relief only. Pain has gotten worse over time. It is global pain. The more she is up and on her knee, the more it hurts. Gets stiff after she sits down for a while. Her walking tolerance is limited. She has difficulty going up and down the steps. [place] would like to have her right knee fixed. PAST MEDICAL HISTORY: Significant for, 1. Hypertension. 2. Elevated cholesterol. 3. Sleep apnea. 4. Diabetes. 5. Low back pain/sciatica. 6. Gastroesophageal reflux disease. 7. Obesity, BMI of 49. PAST SURGICAL HISTORY: Includes, 1. Carpal tunnel release. 2. Rhinoplasty. 3. Left knee replacement done on 08/22/2020. ALLERGIES: CODEINE, WHICH CAUSES GI IRRITATION. CURRENT MEDICATIONS: Include, 1. Lisinopril. 2. Claritin. 3. Zocor. 4. Multivitamin. 5. Fish oil. 6. Celebrex. 7. Metformin. 8. Trazodone. 9. Venlafaxine. 10. Colace. SOCIAL HISTORY: Significant for a 60-year-old female. She is . Does not smoke. No signific ant alcohol intake. FAMILY HISTORY: Noncontributory. REVIEW OF SYSTEMS: Significant for a relatively recent diagnosis of diabetes. She has no chest pain or shortness of breath. No history of DVT or PE. No known bleeding problems. PHYSICAL EXAMINATION: GENERAL: Shows a pleasant middle-aged female. Looks to be in reasonably good health. HEENT: Benign. NECK: Supple. No lymphadenopathy. LUNGS: Clear to auscultation. HEART: Has a regular rate and rhythm. ABDOMEN: Soft, nontender, nondistended. EXTREMITIES: Grossly neurovascularly intact except as follows. Examination of both knees reveals th e patient walks with a slight bit of a limp. Examination of the right knee reveals a moderate soft tissue envelope. She is tender mostly medially . Range of motion is near full extension to about 120 degrees of flexion. No instability. No pain with hip motion. Examination of the left knee reveals a well-healed incision. She has got anatomic alignment to her k nee. Range of motion 0 to 120-125. No instability. Good straight leg raise. X-RAYS: X-rays of the right knee are reviewed. It shows advanced right knee DJD. She has complete loss of her medial joint space. She has got osteophytes in all 3 compartments. She has got loose ky dies around the knee as well. The left knee replacement looks to be in good position. ASSESSMENT: A 60-year-old female a year out from left knee replacement with advanced right knee dege nerative joint disease. She has failed conservative measures and would like to have her right knee r eplaced. PLAN: We will take her to the operating room and do a right total knee replacement. The risks and b enefits of this procedure were explained to the patient and include but not limited to DVT, PE, , infection, neurological injury, vascular injury, bleeding problem, pain, limited range of motion, s tiffness, failure to relieve her symptoms, incomplete relief of symptoms, need for further surgery in the future, fracture, leg length inequality, nerve palsy, etc. The patient understands and desires to proceed. Informed consent was obtained. She was actually scheduled for this surgery previously, but canceled due to the COVID epidemic. She is planning on staying overnight in the hospital. She i s going to use [facility]. She knows to hold her lisinopril and metformin on the mornin g of surgery. Job ID: [id number]
--- NOTE | 2021-08-04 09:54 | Anesthesiology Consultation ---
Date of Service August 04, 2021 Assessment & Plan (1) Encounter for pre-operative examination: - check BSG am DOS - anesthesia record 08/22/2020: left TKA, done under SAB L3-L4 with 2 attempts, no issues noted. - COVID screening: Per arcade games mechanic on 08/04/2021: Travel screen negative, no known COVID-19 positive contacts or current COVID-19 related symptoms in past 2 weeks. Patient vaccinated. Surgeon arranging preop COVID testing, scheduled 08/05/2021. Awaiting results. Chart Review Chart Review: Acceptable Risk for Surgery and Patient NOT seen in Pre Admission Testing History Surgery Operation Date: 08/07/21 10:40 Proposed Procedures p Right Total Knee Arthroplasty - Praveen Clifford MD Surgery re-scheduled to 08/07/2021. Chart evaluated and cleared 03/11/2021. Height/Weight Height: 5 ft 3 in Weight: 120.202 kg Allergies Allergy/AdvReac Type Severity Reaction Status Date / Time codeine AdvReac Mild GI SYMPTOMS Verified 08/04/21 08:57 Medications Home Medications Medication Instructions Recorded Confirmed Last Taken cholecalciferol (vitamin D3) 25 1,000 units PO QAM cap 03/20/19 08/04/21 Unknown mcg (1,000 unit) capsule docusate sodium 100 mg capsule 100 mg PO QAM cap 03/20/19 08/04/21 Unknown multivitamin 1 tab PO QAM 03/20/19 08/04/21 08/20/20 09:00 omega-3 fatty acids 1,000 mg 1,000 mg PO QAM 03/20/19 08/04/21 08/08/20 capsule (Fish Oil Concentrate) metformin 500 mg tablet 1,000 mg PO BID #360 tab 07/22/20 08/04/21 08/20/20 09:00 vitamin B complex 1 tab PO QPM 07/31/20 08/04/21 08/08/20 venlafaxine 75 mg capsule,extended 75 mg PO QAM #90 cap 09/16/20 08/04/21 Unknown release 24 hr trazodone 50 mg tablet 75 mg PO HS PRN #135 tab 10/02/20 08/04/21 Unknown lisinopril 20 1 tab PO QAM #90 tab 12/10/20 08/04/21 Unknown mg-hydrochlorothiazide 12.5 mg tablet celecoxib 200 mg capsule (Celebrex) 200 mg PO QAM #90 cap 01/21/21 08/04/21 Unknown amoxicillin 500 mg tablet 2,000 mg PO ONCE #4 tab 03/02/21 08/04/21 Unknown loratadine-pseudoephedrine ER 10 1 tab PO UD PRN 08/04/21 08/04/21 Unknown mg-240 mg tablet,extended [id number] simvastatin 40 mg tablet 40 mg PO QAM 08/04/21 08/04/21 Unknown Past Medical History Medical History Anxiety DJD (degenerative joint disease) Extreme obesity Fatty liver disease, nonalcoholic GERD (gastroesophageal reflux disease) ACID REFLUX, MILD, INFREQUENT PER PT Hyperlipidemia Hypertension Insomnia Osteoarthritis Prediabetes Seasonal allergies Sleep apnea MILD- NO CPAP, COULD NOT TOLERATE Past Family History Family History Brother Diabetes Dyslipidemia Hypertension Mother Heart disease bypass surgery at 56 Myocardial infarction Father , Age 73 Heart disease Diabetes Myocardial infarction Uncle Alzheimer disease Grandfather (Maternal) Myocardial infarction Grandfather (Paternal) Myocardial infarction Grandmother (Maternal) Stroke Grandmother (Paternal) Diabetes Denies family history of Ovarian cancer Prostate cancer Breast cancer Lung cancer Colorectal cancer Past Surgical History Surgical History History of colonoscopy History of endoscopic sinus surgery History of left knee replacement 08/22/20 [facility] History of nasal septoplasty Lipoma of abdominal wall EXCISION - IN OFFICE PROCEDURE , NO ANESTHESIA FOR PER PT S/P carpal tunnel release right [place] teeth extracted 2 Social History Smoking Status: Never smoker Do You Dip or Chew Tobacco: No Hx Alcohol Use: Yes alcohol intake frequency: holidays/special occasions only Hx Substance Use: No substance use type: does not use Lab Results Anesthesia Preop Results Results Anesthesia Widget: WBC 4.40 K/uL (4.8-10.8) L 07/27/21 Hgb 12.3 g/dL (12.0-16.0) 07/27/21 Hct 36.8 % (37-47) L 07/27/21 Plt 287 K/uL (130-400) 07/27/21 Na 139 mmol/L (136-145) 07/27/21 K 3.8 mmol/L (3.5-5.1) 07/27/21 Cl 103 mmol/L (98-107) 07/27/21 CO2 29 mmol/L (21-32) 07/27/21 BUN 15 mg/dl (6-23) 07/27/21 Creat 0.61 mg/dl (0.6-1.2) 07/27/21 Glucose Level 105 mg/dl (70-99(Fasting)) H 07/27/21 PT 10.1 Seconds (9.0-12.0) 07/27/21 INR 1.0 (0.9-1.1) 07/27/21 Blood Type B Positive 07/27/21 Antibody Screen NEGATIVE 07/27/21 Testing Electrocardiogram Date: 07/27/21 NSR, rate 89 bpm Chest X-Ray Date: 07/27/21 FINDINGS: PA and lateral chest radiographs are compared to study dated 05/28/2020. The examination is degraded by large body habitus. The heart is top normal for projection. There is mild elevation of the right hemidiaphragm and bibasilar atelectasis. No airspace consolidation or pleural effusion is identified. There is no pneumothorax. The skeletal structures are osteopenic. The bony thorax appears intact. IMPRESSION: No active disease in the chest.
[~2021-08-07 07:53] MED LIST changes: +BUPIVACAINE 0.25% 30 ML VIAL ONE; +GABAPENTIN 600 MG DOSE PO SCH; -GABAPENTIN 900 MG DOSE PO SCH; +METOCLOPRAMIDE HCL 10 MG TABLET PO SCH; -ROPIVACAINE 0.5% 5 MG/ML 30 ML VIAL ONE
--- NOTE | 2021-08-07 09:02 | History & Physical Bridge Note ---
Date of Service August 07, 2021 History & Physical Bridge Note I have examined the patient, reviewed the History & Physical and in the interval since the performance of the History & Physical I have noted the following changes of clinical significance: no changes noted
[2021-08-07] MEDS ORDERED: fentaNYL citrate 100 MCG/2 ML VIAL ONE (09:52)
[2021-08-07] MEDS ORDERED: MIDAZOLAM HCL 1 MG/ML 2ML VIAL ONE (09:52)
[2021-08-07] MEDS ORDERED: fentaNYL citrate 100 MCG/2 ML VIAL IV PRN (10:22)
[2021-08-07] MEDS ORDERED: ePHEDrine sulfate 50 MG/ML AMP IV PRN (10:22)
[2021-08-07] MEDS ORDERED: ATROPINE SULFATE 0.1 MG/ML 10ML SYR IV PRN (10:22)
[2021-08-07] MEDS ORDERED: ONDANSETRON INJ 2 MG/ML 2 ML VIAL IV PRN ×2 (10:22→14:15)
[2021-08-07] MEDS ORDERED: BUPIVACAINE LIPOSOME 1.3% 266 MG/20 ML VIAL ONE (10:49)
[2021-08-07] MEDS ORDERED: SODIUM CHLORIDE 0.9% PF 50 ML VIAL ONE (10:49)
[2021-08-07] MEDS ORDERED: BUPIVACAINE/EPINEPHRINE 0.25% 1:200,000 30 ML VIAL ONE (10:49)
[2021-08-07] MEDS ORDERED: KETOROLAC 30 MG/ML VIAL ONE (12:07)
[2021-08-07] MEDS ORDERED: ONDANSETRON INJ 2 MG/ML 2 ML VIAL ONE (12:07)
[2021-08-07] MEDS ORDERED: PROPOFOL IV EMULSION 10 MG/ML 20 ML VIAL IV ONE (12:07)
[2021-08-07] MEDS ORDERED: PHENYLEPHRINE HCL 10 MG/ML VIAL ONE (12:14)
--- NOTE | 2021-08-07 13:03 | Operative Report ---
PG Post Operative Report Pre & Post Diagnosis Operation Date: 08/07/21 10:10 Pre-Op Diagnosis: Right knee osteoarthritis. Post-Op Diagnosis: Right knee osteoarthritis. I identified the patient and participated in the time-out.: Yes Procedure Operation Date: 08/07/21 10:10 Actual Procedures p Right Total Knee Arthroplasty(Right) - Praveen Clifford MD Surgeon Praveen Clifford MD Wafer Abrading Machine Tender Osbaldo Gustafson PA-C Estimated Blood Loss 50 Findings Consistent with Post-Op Diagnosis Operative findings were advanced right knee tricompartment DJD. She had extensive grade 4 disease in all 3 compartments. Fluids 1300 cc Specimens Right knee sent for pathology Anesthesia Type Spinal MAC Complications none Indications The patient is a 60-year-old female said a long history of bilateral knee pain discomfort. She been through extensive conservative treatment over the years which became less successful over time. She had her left knee replaced about a year ago is done well with this. She continued be limited by right knee pain and discomfort. She elected to a total knee arthroplasty. Description of Procedure Operative implants consist of: 1. Biomet Vanguard size 62.5 right posterior stabilized femoral component. 2. Biomet size 67 tibial tray. 3. 10 mm posterior stabilized polyethylene insert. 4. 28 x 8 all polypatella. The patient was taken to the operating, identified, and placed on the operating table supine position protectors were properly padded IV antibiotics tried by anesthesia team. A spinal anesthetic had been implemented holding area. Romero catheter was placed in sterile fashion. A right thigh turn was then placed in the right lower extremities then prepped and draped in usual sterile fashion. The right leg was elevated exsanguinated with use of an Esmarch in and the tourniquet was set at 300 mmHg. An anterior approach to the right knee was then performed to longitudinal incision centered over the patella. Sharp dissection was carried through subcutaneous tissue down the extensor mechanism. A medial parapatellar arthrotomy incision was made. Some subperiosteal dissection was carried out medially. The fat pad was resected from each patella tendon. Lateral patellofemoral ligament was released. Patella subluxated laterally and the knee was flexed. The osteophytes taken out distal femur. The ACL and PCL were then released from the distal femur the tibia subluxated anteriorly. External tibial alignment jig was then placed in the interface the tibia and adjusted 14 mm medially. Proximal tibial cut was made remove about 2 mm of bone from the most deficient aspect medial tibial plateau. Some osteophytes taken off medial and posterior medially. Tibia size a size 67. Attention drawn the femur. The distal femur then with a sharp drill. The intramedullary guide was placed. A right 5 degree valgus cutting guide was placed. Distal femoral cutting block was pinned in place. Distal femoral cut was made to take an additional 3 mm of bone off distal femur. The femur was then sized to a size 62.5. The AP cutting block was pinned parallel to the epicondylar axis which was 3 degrees of external rotation. The anterior cut, anterior chamfer, posterior cut, posterior chamfer cuts were made. The box cutting guide was placed in just slight lateral box cut was made. The knee was flexed. The remnants of the medial lateral menisci were excised. The osteophytes were taken off the posterior aspect of the femur. A trial femoral component was placed. The tibial tray was pinned in maximum external rotation and the drill and stem punch used to create defect in proximal tibia for the tibial tray. Knee was then trialed and the 10 mm insert fit most appropriately. Attention drawn the patella. The patella was cleaned of all soft tissues. Patella thickness measured 28 mm in thickness. Was cut down to 12. Was sized to a size 28 patella. The lug holes were drilled for the 28 patella. The lateral osteophyte is moved. Patella button was placed. Knee was taken through range of motion patella tracked nicely with no thumbs test. Attention drawn to placing permanent components. Trial components were removed. Bone plug was placed in the distal femur limit blood loss. Double batch Palacos G cement was mixed. A Biomet Vanguard size 62.5 right posterior stabilized femoral component, size 67 tibial tray, a 10 mm posterior stabilized polyethylene insert, and a 28 x 8 all polypatella were then cemented in place. The knee was brought out into full extension until cement hardened. Final cement check was then performed. Pericapsular tissues were injected with total 100 cc of combination of 20 cc of Exparel, 30 cc normal saline, 50 cc of quarter percent Marcaine with epinephrine. The tourniquet was then let down for final turn time 54 minutes. Hemostasis surgeons electrocautery. Extensor mechanism closed with combination 1 PDS suture #1 Vicryl suture in [id number] fashion. Extensor mechanism checked found to be intact with subcutaneous tissue then closed with 2 Dexon suture buried fashion skin was closed with skin marisol. The leg was then cleaned and dried and sterile dressing was Xeroform, 4 x 4's, sterile ABD pad, sterile cast padding, Jesus Manuel bandage were applied. Patient then transferred to the recovery room in stable condition. Patient tolerated procedure well and there were no complications. Osbaldo Gustafson, my physician funeral assistant, was present for the entire procedure. His assistance was essential and required for appropriate patient positioning, prepp ing and draping, surgical exposure, performing the technical details of the operation, placement the implants, closure of the wound, and placement of the sterile bandage. I attest to the content of the Intraoperative Record and any orders documented therein. Any exceptions are noted below.
--- NOTE | 2021-08-07 13:48 | XRay Report ---
RIGHT KNEE 2 VIEWS History: Right total knee arthroplasty. Degenerative arthritis. Postop. FINDINGS: The patient is status post a right total knee arthroplasty. The hardware is intact. No frac ture or dislocation. Skin marisol are in place. IMPRESSION: Right total knee arthroplasty. No evidence for hardware complication. ACT 112: Negative or not required by law. Electronically signed by: Mikhail Gates M.D. 08/07/2021 1:47 PM
--- NOTE | 2021-08-07 14:01 | Anesthesiology Progress Note ---
Date of Service August 07, 2021 Anesthesia Post Procedure Vital Signs Vital Signs: Temp Pulse Pulse Resp BP Pulse Ox 08/07/21 13:50 37.1 C 73 20 136/71 96 08/07/21 13:40 71 18 118/71 96 08/07/21 13:30 60 20 119/67 98 08/07/21 13:20 76 20 123/64 97 08/07/21 13:10 73 18 126/64 91 08/07/21 13:00 70 20 117/60 97 08/07/21 12:56 37.4 C 75 12 130/56 L 94 08/07/21 08:30 36.8 C 73 20 157/97 H 98 Transfer of Care Handoff Completed per policy Notes Mental Status: alert / awake / arousable and participated in evaluation Nausea / Vomiting: adequately controlled Pain: adequately controlled Airway Patency, RR, SpO2: stable & adequate BP & HR: stable & adequate Hydration State: stable & adequate Neuraxial Anesthesia: was administered and sensory block is resolving Anesthetic Complications: no major complications apparent and Pt Satisfied with anesthetic care
[2021-08-07] MEDS ORDERED: DEXTROSE 50% 50 ML SYRINGE IV PRN (14:15)
[2021-08-07] MEDS ORDERED: NALOXONE HCL 0.4 MG/1 ML VIAL/CARP IV PRN (14:15)
[2021-08-07] MEDS ORDERED: traZODone HCL 50 MG TAB PO PRN (14:15)
[2021-08-07] MEDS ORDERED: ALUMINUM/MAGNESIUM SUSP 30 ML UDC PO PRN (14:15)
[2021-08-07] MEDS ORDERED: oxyCODONE HCL IR 5 MG TAB (IMMEDIATE RELEASE) PO PRN (14:15)
[2021-08-07] MEDS ORDERED: CARBOHYDRATES FOR HYPOGLYCEMIA PO PRN (14:15)
[2021-08-07] MEDS ORDERED: bisacodyL 10 MG SUPP PR PRN (14:15)
[2021-08-07] MEDS ORDERED: MAGNESIUM HYDROXIDE SUSP 30 ML UDC PO PRN (14:15)
[2021-08-07] MEDS ORDERED: HYDROmorphone INJ 0.5 MG/0.5 ML SYR IV PRN (14:15)
[2021-08-07] MEDS ORDERED: GLUCOSE 40% GEL 15 GM TUBE PO PRN (14:15)
[2021-08-07] MEDS ORDERED: METOCLOPRAMIDE HCL INJ 5 MG/ML 2 ML VIAL IV PRN (14:15)
[2021-08-07] MEDS ORDERED: GLUCOSE 10 TABS/TUBE PO PRN (14:15)
[2021-08-07] MEDS ORDERED: diphenhydrAMINE Capsule 25 MG CAP PO PRN (14:15)
[2021-08-07] MEDS ORDERED: GLUCAGON FOR INJ 1 MG VIAL SQ PRN (14:15)
[2021-08-07] MEDS ORDERED: PHARMACY GLYCEMIC MGMT CONSULT PRN (14:15)
[2021-08-07] MEDS ORDERED: ONDANSETRON 4 MG OD TAB PO PRN (14:43)
[2021-08-07] MEDS ORDERED: LORATADINE 10 MG TAB PO PRN (14:56)
--- NOTE | 2021-08-07 15:05 | Pharmacy Report ---
Pharmacy Glycemic Short Note 2 - Date of Service August 07, 2021 - Glycemic Short BSG Results (Last 24 hours): 08/07/21 08/07/21 08:59 13:01 POC Glucose 114 H 117 H OUTPATIENT ANTIDIABETIC REGIMEN: * metformin 1gm BID * HbA1C __ ASSESSMENT: * 60 year old now POD #0 R total knee arthroplasty - managed on metformin at home for pre-diabetes/metabolic syndrome * No steroids received preop per review of chart, ordered Type 2 diet * Plan to start bolus Novolog with stress of 2 dosing (AdjBW). Post op BSG - 117mg/dL. Will hold carb coverage for now and trend BSGs -- may be resumed if BSGs trend up. PLAN FOR INPATIENT GLYCEMIC CONTROL: * Hold outpatient oral diabetes medications * Bolus insulin * NovoLog per scale ACHS or Q6hrs while NPO * Goal Range: Low 110 mg/dL - High 140 mg/dL * Correction Factor: 30 mg/dL/unit
[2021-08-07] MEDS: SODIUM CHLORIDE 0.9% 1000ML 1,000 ML IV SCH (15:14)
[2021-08-07] MEDS: Scopolamine CHECK PATCH PLACEMENT SCH ×2 (15:59→23:41)
[2021-08-07] MEDS: KETOROLAC 30 MG/ML VIAL IV SCH ×2 (17:19→23:38)
[2021-08-07] MEDS: ASCORBIC ACID 500 MG TAB PO SCH (17:19)
[2021-08-07] MEDS: INSULIN ASPART PER UNIT SC SCH ×2 (17:37→21:45)
[2021-08-07] MEDS: ceFAZolin 2000MG 2,000 MG/15 ML SYR IV SCH (18:13)
[2021-08-07] MEDS ORDERED: TRANEXAMIC ACID / 0.7% NACL 1,000 MG/100 ML BAG IV SCH (19:00)
[2021-08-07] MEDS: ASPIRIN 81 MG ECTAB PO SCH (20:45)
[2021-08-07] MEDS: DOCUSATE SODIUM 100 MG CAP PO SCH (20:45)
[2021-08-07] MEDS: TAPENTADOL HCL ER 50 MG TABCR PO SCH (20:47)
[2021-08-07] MEDS ORDERED: VITAMIN B COMPLEX TAB PO SCH (21:00)
[2021-08-07] MEDS ORDERED: SENNA 8.6 MG TAB PO SCH (21:00)
[2021-08-07] MEDS: ACETAMINOPHEN 500 MG TAB PO SCH (21:39)
[2021-08-08] MEDS: SODIUM CHLORIDE 0.9% 1000ML 1,000 ML IV SCH (01:22)
[2021-08-08] MEDS: ceFAZolin 2000MG 2,000 MG/15 ML SYR IV SCH (03:12)
[2021-08-08] MEDS: KETOROLAC 30 MG/ML VIAL IV SCH (05:41)
[2021-08-08] MEDS: ACETAMINOPHEN 500 MG TAB PO SCH (05:41)
[2021-08-08 06:26] LABS: Hematocrit (blood only) 33.7 % (37-47); Hemoglobin 10.9 g/dL (12.0-16.0); Mean Corpuscular Hgb Conc 32.3 g/dL (32-36); Mean Corpuscular Volume 89.6 fL (80-100); Mean Platelet Volume 9.4 fL (7.4-10.4); Platelet Count 228 K/uL (130-400); RDW Coefficient of Variation 14.5 % (11.5-14.5); RDW Standard Deviation 47.4 fL (36.4-46.3); Red Blood Count 3.76 M/uL (4.2-5.4); White Blood Count 5.84 K/uL (4.8-10.8)
[2021-08-08 06:50] LABS: BUN Creatinine Ratio 24.6 (10-20); Calcium 8.6 mg/dl (8.5-10.1); Creatinine Clr Calc Pharmacy 131.1 ml/min; Est GFR (African American) 115.8 ml/min; Est GFR (Non-African American) 99.9 ml/min; Potassium 3.9 mmol/L (3.5-5.1)
--- NOTE | 2021-08-08 07:31 | Orthopedic Progress Note ---
Date of Service August 08, 2021 Assessment & Plan (1) Right knee DJD: Overall she is doing fairly well. She is having too much pain in the right knee. She will be seen by physical therapy today for ambulation and range of motion exercises. If she does well with therapy then she can be discharged to home later today. She will follow-up with orthopedics in 2 weeks. Marshall Cardneas was seen and examined at bedside this morning. Overall she doing fairly well. She denies any much pain in the right knee. She has already been up and ambulating to the bathroom. She has no complaints. Review of Systems All systems reviewed & are unremarkable except as noted in HPI & below. Physical Exam On physical examination of the right knee, the dressing is clean and dry. She has active dorsiflexion plantarflexion of the right ankle. Results & Data Results & Data Laboratory Results . Diagnostic Findings . PG Care Time/CCT Total # of Minutes Spent Total Time Spent with Patient: Total time spent is greater than 50% in coordination of care (as documented) at patient's floor/unit and/or counseling patient: Coding Level of Care Code 51262 Post Operative Follow-Up Diagnoses Right knee DJD M17.11
[2021-08-08 07:47] LABS: Estimated Average Glucose 108 mg/dl; Hemoglobin A1C 5.4 % (4.5-5.6)
[2021-08-08] MEDS: TAPENTADOL HCL ER 50 MG TABCR PO SCH (07:47)
[2021-08-08] MEDS: ASCORBIC ACID 500 MG TAB PO SCH (08:43)
[2021-08-08] MEDS: ASPIRIN 81 MG ECTAB PO SCH (08:43)
[2021-08-08] MEDS: DOCUSATE SODIUM 100 MG CAP PO SCH (08:43)
[2021-08-08] MEDS: Scopolamine CHECK PATCH PLACEMENT SCH (08:45)
[2021-08-08] MEDS: INSULIN ASPART PER UNIT SC SCH (08:47)
[2021-08-08] MEDS ORDERED: MULTIVITAMIN TAB PO SCH ×2 (09:00)
[2021-08-08] MEDS ORDERED: DOCUSATE SODIUM/SENNA 50/8.6MG TAB PO SCH (09:00)
[2021-08-08] MEDS ORDERED: DOCUSATE SODIUM 100 MG CAP PO SCH (09:00)
[2021-08-08] MEDS ORDERED: CHOLECALCIFEROL 1,000 UNITS 25 MCG TAB PO SCH (09:00)
[2021-08-08] MEDS ORDERED: LISINOPRIL/HCTZ 20/12.5MG 1 TAB TAB PO SCH (09:00)
[2021-08-08] MEDS ORDERED: SIMVASTATIN 40 MG TAB PO SCH (09:00)
[2021-08-08] MEDS ORDERED: OMEGA-3 (PURIFIED FISH OIL) 1 GM CAP PO SCH (09:00)
[2021-08-08] MEDS ORDERED: VENLAFAXINE HCL XR 75 MG CAPXR PO SCH (09:00)
--- NOTE | 2021-08-11 08:41 | Discharge Summary ---
Date of Service August 11, 2021 Discharge Data Procedures Performed Operation Date: 08/07/21 10:10 Actual Procedures p Right Total Knee Arthroplasty(Right) - Praveen Clifford MD Hospital Course (1) Status post total right knee replacement: Theresa is a 60 year old patient admitted on 08/07/21 and underwent total knee arthroplasty. She tolerated the procedure well and there were no complications. Transferred to the PACU post op and later to the orthopedic floor for further care. She was given ancef for antibiotic prophylaxis. SHe was also given WINIFRED stockings, SCDs, and aspirin for DVT prophylaxis. Hemoglobin, hematocrit, and vital signs were monitored during her hospital stay and remained stable. Did not require any blood transfusions. There were no complications during her hospital stay. By post op day #1 the patient was tolerating a diabetic diet, pain was reasonably controlled with oral pain medicine, and she was participating in physical therapy. On post op day #1 the patient was discharged home and set up with home health care. She was given printed discharge instructions including prescriptions for extra strength tylenol, aspirin, zofran, toradol, and oxyc odone. Continue physical therapy, weight bearing as tolerated. Continue WINIFRED stockings. Follow up approximately 2 weeks post op or sooner if there are problems or concerns. Coding Level of Care Code None Diagnoses Status post total right knee replacement Z96.651
== END 2021-08-08 11:53 | disposition home health service (06) ==
LOC: 3W 07:53 → ASU 07:53